=== PATIENT | female | born 1965 | race Caucasian/White ===

== ENCOUNTER 2016-09-23 07:46 | Emergency (ER) | payer MEDICAID ==
[~2016-09-23] VITALS: Ht 157.5 cm; Wt 62.0 kg
[~2016-09-23 07:46] MED LIST: FAMO-18 PO; TOLN30CR2 TOP
[2016-09-23 07:51] VITALS: Ht 157.5 cm; Wt 62.0 kg
[2016-09-23] MEDS ORDERED: CARB15DR48 LEFT EAR (08:18)
[2016-09-23] MEDS ORDERED: ACET-141 PO (08:22)
[2016-09-23] MEDS ORDERED: FAMO-18 PO (08:22)
--- NOTE | 2016-09-23 09:53 | ERD ---
ER Documentation Chief Complaint Date/Time DATE: 09/23/16 TIME: 08:29 Chief Complaint left ear pain x 1 week HPI This is a 51-year-old female presents to the ER with sharp left ear pain for the last week. Ear pain is intermittent. Patient does not have any discharge from the ear. She has not tried anything for this. Patient has had an episode of this pain in the past, it was relieved with drops. Denies any hearing loss or tinnitus. She denies any fevers or chills. Patient also complaining of entire body pain with joint pain for the last week. She denies any cough or cold symptoms. Patient does not have a primary care doctor and is requesting cholesterol and diabetes testing. ROS 12 point review of systems was done, all negative except per HPI. Medications Home Meds Active Scripts Acetaminophen* (Acetaminophen*) 500 MG Extra Strength Tablet, 500 MG PO Q4H Y for PAIN AND OR ELEVATED TEMP for 5 Days, TAB Prov:ONEL,RAVI C 09/23/16 Famotidine* (Pepcid*) 20 Mg Tablet, 20 MG PO BID for 5 Days, TAB Prov:ONELRAVI C 09/23/16 Carbamide Peroxide* (Debrox*) 6.5% - 15 Ml Drops, 10 DROP LEFT EAR BID for 5 Days, BOTTLE Prov:ONELRAVI ZAMARRIPA C 09/23/16 Tolnaftate (Tinactin) 1% - 15 Gm Cream.gm., 1 APPLIC TOP DAILY for 90 Days, TUB Prov:SIMON WESTON DO 02/01/15 Famotidine* (Pepcid*) 20 Mg Tablet, 20 MG PO BID for 4 Days, TAB Prov:JERRY CARBAJAL MD 12/27/14 Allergies Allergies: Coded Allergies: No Known Allergy (Unverified , 09/23/16) PMhx/Soc History of Surgery: No Anesthesia Reaction: No Hx Neurological Disorder: No Hx Respiratory Disorders: No Hx Cardiac Disorders: No Hx Psychiatric Problems: No Hx Miscellaneous Medical Probl: No (NO MEDICAL OR SURGICAL HISTORY) Hx Alcohol Use: No Hx Substance Use: No Hx Tobacco Use: No Smoking Status: Never smoker Physical Exam Vitals Vital Signs Date Time Temp Pulse Resp B/P Pulse Ox O2 Delivery O2 Flow Rate FiO2 09/23/16 07:51 97.3 77 18 123/57 98 Physical Exam GENERAL: The patient is well developed and appropriate for usual state of health , in no apparent distress. HEENT: Atraumatic. Patient has left cerumen impaction. No mastoid tenderness TMs not visualized. CHEST: Clear to auscultation bilaterally. There are no rales, wheezes or rhonchi. HEART: Regular rate and rhythm. No murmurs, clicks, rubs or gallops. EXTREMITIES:No focal swelling or erythema. Full range of motion. Grossly neurovascularly intact. NEURO: Alert and oriented SKIN: The skin is warm and dry. Procedures/MDM This is a 51-year-old female presents to the ER with left ear pain. Patient does have cerumen impaction which may be causing her ear pain at this time I do not believe patient has otitis media she is afebrile, well-appearing and does not have a history of recent cough or cold. TMs however were not visualized secondary to cerumen impaction. Patient does not have any mastoid tenderness I doubt mastoiditis. In regards to patient's joint pain this may be viral in etiology versus myalgias. Patient has full range of motion of her upper and lower extremities. She is neurovascularly intact. I explained to patient that diabetes and cholesterol testing can be done with her primary care doctor and provided her with a list of community health centers. Patient will be sent home with Debrox and with ibuprofen. She is to follow-up with her primary care doctor within 1-2 days return to ER sooner if symptoms worsen. My medical decision making was shared with the patient she understands and agrees with plan. Departure Diagnosis: Primary Impression: Otalgia Condition: Stable Patient Instructions: Diagnosing Middle Ear Problems [facility] Usted se pitt hecho un examen mdico de control que le indica que no est en franny condicin que requiera tratamiento urgente en el Departamento de Emergencia. Un estudio ms profundo y el tratamiento de lara condicin pueden esperar sin ningn riesgo hasta que usted sea atendida/o en el consultorio de lara mdico o franny cl manny. Es responsabilidad suya arreglar franny dom para el seguimiento del bette. MANEJO DE CONDICIONES NO URGENTES EN EL FUTURO 1) Si usted tiene un mdico de atencin primaria: Usted debera llamar a lara mdico de atencin primaria antes de venir al departamento de emergencia. Despus de las horas de consultorio, lara doctor o lara asociado/a est disponible por telfono. El mdico o enfermero de nat en el servicio telefnico puede asesorarle por drea medio para atender el problema, o bette contrario se puede programar franny dom. 2) Si usted no tiene un mdico de atencin primaria: Llame al mdico o clnica de referencia que aparece abajo lluvia las horas de consultorio para hacer franny dom para que le vean. CLINICAS: [facility] [phone] [facility] [phone] [facility] [phone] [facility] [facility] [phone] [facility] [facility] [phone] [address] [facility] [phone] [address] Additional Instructions: Llame al doctor MAANA y delmis franny DOM PARA DENTRO DE 1-2 SHARMA.Dgale a la secretaria que nosotros le instruimos hacer esta dom.Avise o llame si lara condicin se empeora antes de la dom. Regresa aqui si peor o no mejor. RAVI SYKES September 23, 2016 08:39
== END 2016-09-23 08:32 | disposition home or self-care (01) ==
LOC: FTE 07:46
DX: H92.02 Otalgia, left ear (principal)
CPT/HCPCS: 99283

== ENCOUNTER 2017-12-12 17:27 | Emergency (ER) | END 2017-12-12 21:28 | disposition home or self-care (01) ==

== ENCOUNTER 2018-02-03 18:09 | Emergency (ER) | END 2018-02-03 20:55 | disposition home or self-care (01) ==